=== PATIENT | male | born 1975 | race Hispanic/Latino ===

== ENCOUNTER 2019-12-22 02:14 | Emergency (ER) | payer OTHER ==
[~2019-12-22] VITALS: Ht 180.3 cm; Wt 95.3 kg
[2019-12-22] MEDS ORDERED: KETOROLAC TROMETHAMINE 60 MG/2 ML VIAL IM ONE (02:45)
[2019-12-22] MEDS ORDERED: ORPHENADRINE CITRATE 30 MG/ML VIAL IM ONE (02:45)
[2019-12-22] MEDS ORDERED: ORPHENADRINE CITRATE 30 MG/ML VIAL ONE (02:51)
== END 2019-12-22 03:31 | disposition home or self-care (01) ==
LOC: ER 02:14
DX: S16.1XXA Strain of muscle, fascia and tendon at neck level, initial encounter (principal); Y93.84 Activity, sleeping; Y92.003 Bedroom of unspecified non-institutional (private) residence as the place of occurrence of the external cause; Z86.69 Personal history of other diseases of the nervous system and sense organs
CPT/HCPCS: 93005; 99282; J1885; J2360